=== PATIENT | male | born 1950 | race Two or more races ===

== ENCOUNTER 2020-07-25 09:09 | Outpatient (CLI) | payer OTHER | END 2020-07-25 09:20 | disposition home or self-care (01) | LOC: SONOGRAMA 09:09 → MAMO-SONO 09:15 → SONOGRAMA 09:20 | PROVIDERS: ATTEND Specialist | DX: N40.3 Nodular prostate with lower urinary tract symptoms (principal); R97.20 Elevated prostate specific antigen [PSA] ==